=== PATIENT | male | born 2000 | race Caucasian/White ===

== ENCOUNTER 2019-01-22 13:55 | Emergency (ER) | payer OTHER ==
[~2019-01-22] VITALS: Ht 175.3 cm; Wt 74.4 kg
[2019-01-22 14:06] VITALS: Ht 175.3 cm; Wt 74.4 kg
[2019-01-22 18:10] VITALS: BP 99/81
== END 2019-01-22 18:10 | disposition home or self-care (01) ==
LOC: ED 13:55
DX: T78.1XXA Other adverse food reactions, not elsewhere classified, initial encounter (principal); X58.XXXA Exposure to other specified factors, initial encounter
CPT/HCPCS: J7512; Q0163